=== PATIENT | male | born 1960 | race African-American/Black ===

== ENCOUNTER 2016-05-04 08:47 | Emergency (ER) | payer OTHER ==
[2016-05-04 08:50] VITALS: BP 152/69
--- NOTE | 2016-05-04 09:10 | PHYS DOC ---
Text Departure: Impression: Primary Impression: Feared condition not demonstrated Disposition: HOME, SELF-CARE (At 0936) Condition: STABLE General Chief Complaint: FOREIGN BODY Time Seen by MD: 08:50 Source: patient Problems: History of Present Illness Initial Comments 55-year-old male patient with history of diabetes mellitus states he was giving himself injections of insulin in right-side of abdominal wall and the needle was broken and stayed inside the abdominal wall. Allergies: Coded Allergies: ibuprofen (Verified Allergy, Unknown, 05/04/16) Past Medical History Medical History: diabetes, other (dialysis) Review of Systems Constitutional: no symptoms reported EENTM: no symptoms reported Respiratory: no symptoms reported Cardiovascular: no symptoms reported Gastrointestinal: see HPI Genitourinary: no symptoms reported Musculoskeletal: no symptoms reported Skin: no symptoms reported Psychiatric/Neurological: no symptoms reported Hematologic/Lymphatic: no symptoms reported Immunological/Allergic: no symptoms reported All Other Systems: Reviewed and Negative Physical Exam General Appearance: WD/WN, no apparent distress Ear, Nose, Throat: hearing grossly normal, normal ENT inspection, normal pharynx Neck: non-tender, full range of motion Respiratory: chest non-tender, lungs clear, normal breath sounds Cardiovascular: normal peripheral pulses, regular rate, rhythm, no edema, no gallop Gastrointestinal: normal bowel sounds, non tender, soft, no organomegaly, other (left side peritoneal catheter in place, no foreign body in right side of abdomen) Orders, Labs, Meds Evaluation of patient's shortness 55-year-old male patient presented with possible retained metal part of insulin syringe in abdominal wall. X ray and physical exam did not demonstrate foreign body in abdominal wall. JAIRO LINDO MD May 04, 2016 09:10
--- NOTE | 2016-05-04 09:30 | RAD ---
Abdomen, 3 views, 05/04/2016: History: Possible retained broken needle AP and lateral views were obtained. The AP views were centered over the right side of the abdomen with the lower pelvis and left flank region not being completely visualized. A BB was placed on the skin surface in the right flank region in the area of clinical concern on one of the 2 AP views. No underlying radiopaque foreign body is seen at this level to suggest a retained needle fragment. There is a cluster of coil like radiopacities projected over the right renal region, most likely representing embolization coils. There are surgical clips in the right lower quadrant and the pelvis. There is a tubing overlying the left side of the abdomen, incompletely visualized on these images, reportedly representing a peritoneal dialysis catheter. A radiopaque foreign body compatible with a portion of a safety pin is projected over the left lower quadrant. This presumably lies on the surface of the patient. Clinical correlation is suggested. There is a moderate amount of gas in large and small bowel in a nonspecific pattern. Moderate aortoiliac calcific plaquing is present. IMPRESSION: 1. No retained needle fragment is identified in the area of reported clinical concern in the right flank region. 2. Surgical clips, embolization coils and a peritoneal dialysis catheter with an associated safety pin as described above.
== END 2016-05-04 09:40 | disposition home or self-care (01) ==
LOC: ER 08:47
DX: Z71.1 Person with feared health complaint in whom no diagnosis is made (principal); E11.9 Type 2 diabetes mellitus without complications; Z99.2 Dependence on renal dialysis; Z79.4 Long term (current) use of insulin; Z88.6 Allergy status to analgesic agent
CPT/HCPCS: 74020; 99284

== ENCOUNTER 2016-11-29 16:28 | Emergency (ER) | payer OTHER ==
[2016-11-29] MEDS ORDERED: HYDROcodone/APAP 5/325MG 1 TAB TABLET ONE (17:22)
[2016-11-29] MEDS ORDERED: HYDROcodone/APAP 5/325MG 1 TAB TABLET PO ONE (17:45)
--- NOTE | 2016-11-29 17:55 | PHYS DOC ---
Past History Past Medical History: Diabetes, Renal Disease Past Surgical History: Other Alcohol Use: None Drug Use: None Adult General Chief Complaint Chief Complaint: MECHANICAL FALL HPI HPI Patient is a 56 year old M who presents after a fall just prior to arrival. Candice describes generalized pain in his ankles bilaterally with radiation to the lower leg just below the knee. He states that just prior to his fall he began feeling symptoms of low blood sugar, which is not atypical with his diabetes. He stood up from the living room and walked towards the kitchen to get a snack when he became dizzy and fell. He has been unable to bear weight. He states that he has no other associated symptoms. He has no other exacerbating or alleviating factors. Review of Systems Review of Systems Constitutional: Denies fever or chills [] Eyes: Denies change in visual acuity, redness, or eye pain [] HENT: Denies nasal congestion or sore throat [] Respiratory: Denies cough or shortness of breath [] Cardiovascular: No additional information not addressed in HPI [] GI: Denies abdominal pain, nausea, vomiting, bloody stools or diarrhea [] : Denies dysuria or hematuria [] Musculoskeletal: Negative except history of present illness Integument: Denies rash or skin lesions [] Neurologic: Denies headache, focal weakness or sensory changes [] Endocrine: Denies polyuria or polydipsia [] Family History Family History Noncontributory Current Medications Current Medications Home medications reviewed Current Medications Medications (Trade) Dose Ordered Sig/Elia Start Time Stop Time Status Last Admin Dose Admin Acetaminophen/ Hydrocodone Bitart (Lortab 5/325) 2 tab 1X ONCE 11/29/16 17:45 11/29/16 17:46 DC Morphine Sulfate (Morphine 2mg Syringe) 2 mg 1X ONCE 11/29/16 17:45 11/29/16 17:46 UNV Ondansetron HCl (Zofran) 4 mg 1X ONCE 11/29/16 17:45 11/29/16 17:46 UNV Allergies Allergies Allergies Coded Allergies Type Severity Reaction Last Updated Verified ibuprofen Allergy Unknown 05/04/16 Yes Physical Exam Physical Exam Constitutional: Well developed, well nourished, non-toxic appearance. [] Moderate distress noted due to pain. HENT: Normocephalic, atraumatic, bilateral external ears normal, oropharynx moist, no oral exudates, nose normal. [] Eyes: EOMI, conjunctiva normal, no discharge. [] Neck: Normal range of motion, no tenderness, supple, no stridor. [] Cardiovascular:Heart rate regular rhythm, no murmur [] Lungs & Thorax: Bilateral breath sounds clear to auscultation [] Abdomen: Bowel sounds normal, soft, no tenderness, no masses, no pulsatile masses. [] Skin: Warm, dry, no erythema, no rash. [] Back: No tenderness, no CVA tenderness. [] Extremities: Bilateral ankles noted to have mild swelling, moderate generalized tenderness to palpation worse over the lateral ankle bilaterally. Strength and range of motion testing limited due to pain. Neurovascularly intact bilaterally. Neurologic: Alert and oriented X 3, normal motor function, normal sensory function, no focal deficits noted. [] Psychologic: Affect normal, judgement normal, mood normal. [] Current Patient Data Vital Signs Vital Signs Date Time Temp Pulse Resp B/P (MAP) Pulse Ox O2 Delivery O2 Flow Rate FiO2 11/29/16 16:40 97.5 93 22 93 Room Air EKG EKG [] Radiology/Procedures Radiology/Procedures Ankle x-ray bilaterally Impressions: Distal right fibular oblique fracture Distal left fibular oblique fracture Course & Med Decision Making Course & Med Decision Making Pertinent Labs and Imaging studies reviewed. (See chart for details) Fabias condition is complicated by diabetes, high blood pressure and dialysis for renal failure. His dialysis days are Saturday. He did dialyze today. His next dialysis date is Saturday. Orthopedics was contacted by phone. His pain is difficult to control with oral pain medication. Transfer was recommended for pain control and further management from orthopedics. Dragon Disclaimer Dragon Disclaimer This chart was dictated in whole or in part using Voice Recognition software in a busy, high-work load, and often noisy Emergency Department environment. It may contain unintended and wholly unrecognized errors or omissions. Departure Departure: Impression: Primary Impression: Closed fracture of right distal fibula Disposition: OTHER Condition: STABLE Referrals: MARIANNE PAN DO (PCP) Problem Qualifiers Primary Impression: Closed fracture of right distal fibula Encounter type: initial encounter Fracture morphology: unspecified fracture morphology Qualified Codes: S82.831A - Other fracture of upper and lower end of right fibula, initial encounter for closed fracture CARMEN AMAYA MD Nov 29, 2016 17:55
[2016-11-29] MEDS ORDERED: MORPHINE SULFATE 2 MG/ML DISP.SYRIN. IV ONE (18:00)
[2016-11-29] MEDS ORDERED: ONDANSETRON PF 4 MG/2 ML VIAL. IV ONE (18:00)
--- NOTE | 2016-11-29 18:30 | RAD ---
History: Fall, bilateral ankle pain and swelling. Comparison: None. Findings: AP, lateral, and oblique views of the right ankle. Spiral fracture seen involving the distal fibular shaft extending to the level of the ankle mortise (Zapata B). There is no widening of the ankle mortise. Lateral ankle soft tissue swelling is seen. Plantar calcaneal and Achilles tendon insertional enthesophytes are seen. AP, lateral, and oblique views of the left ankle. Nondisplaced spiral fracture is seen involving the distal fibula extending to the ankle mortise (Zapata B). Lateral ankle soft tissue swelling is seen. There is no widening of the ankle mortise. Lateral ankle soft tissue swelling is present. Plantar calcaneal and Achilles tendon insertional enthesophytes are seen. Impression: Bilateral fibular fractures, presumably acute. Electronically signed by: Vinod Calderon MD (11/29/2016 6:26 PM) [facility]
[2016-11-29] MEDS ORDERED: MORPHINE SULFATE 4 MG/ML DISP.SYRIN. ONE (18:31)
[2016-11-29] MEDS ORDERED: MORPHINE SULFATE 4 MG/ML DISP.SYRIN. IV ONE ×3 (18:45→20:30)
[2016-11-29 19:00] LABS: BASO % 0 % (0-3); EOS # 0.1 x10^3/uL (0.0-0.7); EOS % 1 % (0-3); HEMATOCRIT 33.3 % (39.0-53.0); HEMOGLOBIN 10.5 g/dL (13.0-17.5); LYMPH # 1.3 x10^3/uL (1.0-4.8); LYMPH % 13 % (24-48); MEAN CORPUSCULAR HEMOGLOBIN 26 pg (25-35); MEAN CORPUSCULAR HGB CONC 32 g/dL (31-37); MEAN CORPUSCULAR VOLUME 82 fL (79-100); MONO % 10 % (0-9); NEUT # 7.5 x10^3uL (1.8-7.7); NEUT % 76 % (31-73); PLATELET COUNT 271 x10^3/uL (140-400); RED BLOOD COUNT 4.05 x10^6/uL (4.30-5.70); RED CELL DISTRIBUTION WIDTH 20.3 % (11.5-14.5); WHITE BLOOD COUNT 9.9 x10^3/uL (4.0-11.0)
[2016-11-29 19:03] LABS: CALCIUM 9.1 mg/dL (8.5-10.1); CREATININE 7.4 mg/dL (0.7-1.3); GFR 9.3; POTASSIUM 4.8 mmol/L (3.5-5.1)
[2016-11-29 19:56] VITALS: BP 105/56
[2016-11-29 23:03] LABS: ANISOCYTOSIS MOD; MICROCYTOSIS SLIGHT; OVALOCYTES FEW; PLT ESTIMATE ADEQUATE (ADEQUATE); STOMATOCYTES FEW; TARGET CELLS FEW; TEAR DROP CELLS FEW
== END 2016-11-29 20:45 | disposition short-term general hospital (02) ==
LOC: ER 16:28
DX: S82.831A Other fracture of upper and lower end of right fibula, initial encounter for closed fracture (principal); M25.572 Pain in left ankle and joints of left foot; E11.22 Type 2 diabetes mellitus with diabetic chronic kidney disease; N18.6 End stage renal disease; Z99.2 Dependence on renal dialysis; Z88.6 Allergy status to analgesic agent; W19.XXXA Unspecified fall, initial encounter; Y93.01 Activity, walking, marching and hiking; Y99.8 Other external cause status; Y92.000 Kitchen of unspecified non-institutional (private) residence as the place of occurrence of the external cause
CPT/HCPCS: 29515; 36415; 73610; 80048; 82947; 85025; 96374; 96375; 96376; 99285; J2270; J2405

== ENCOUNTER → 2016-12-27 | Outpatient (CLI) | payer MEDICARE, OTHER ==
[2016-11-29 19:56] VITALS: BP 105/56
--- NOTE | 2016-12-27 10:15 | RAD ---
Left lower extremity arterial duplex ultrasound. 12/27/2016 Indication: Left lower extremity pain. Foot pain. Painful great toe. Patient is a dialysis dependent patient with history of diabetes and hypertension. Discussion: Sonographic evaluation of the arteries of the left lower extremity was performed including color Doppler imaging spectral analysis. Diffuse changes of atherosclerotic vascular disease are noted. Left common femoral artery demonstrates biphasic waveforms normal velocities. Visualized profunda artery is grossly patent. Biphasic waveforms are seen throughout the left SFA without demonstrable visual stenosis or focal elevation in velocities suggestive of a high-grade stenosis. More dense focal calcification is noted in the left popliteal artery however waveforms remain triphasic and no focal elevation of velocities is appreciated. There is shift monophasic waveforms in the left posterior tibial artery. Peroneal artery and anterior tibial artery with biphasic waveforms. Impression: Diffuse atherosclerotic vascular disease without sonographic evidence of hemodynamically significant focal stenosis. Consider correlation with ankle brachial indices. If there is persistent concern for an a sonographically occult hemodynamically significant stenosis CTA may be further may be helpful for further evaluation.
== END | disposition home or self-care (01) ==
LOC: US 08:03
PROVIDERS: ATTEND Internal Medicine Nephrology
DX: I70.292 Other atherosclerosis of native arteries of extremities, left leg (principal); E11.22 Type 2 diabetes mellitus with diabetic chronic kidney disease; I12.0 Hypertensive chronic kidney disease with stage 5 chronic kidney disease or end stage renal disease; N18.6 End stage renal disease; Z99.2 Dependence on renal dialysis; Z79.4 Long term (current) use of insulin
CPT/HCPCS: 93926

== ENCOUNTER 2017-09-09 12:44 | Emergency (ER) | payer MEDICARE, OTHER ==
[~2017-09-09] VITALS: Ht 185.4 cm; Wt 124.3 kg
--- NOTE | 2017-09-09 13:07 | ED.ADGEN ---
Past History Past Medical History: Diabetes, Renal Disease Past Surgical History: Other Alcohol Use: None Drug Use: None Adult General Chief Complaint Chief Complaint Elevated blood sugar HPI HPI The patient is on peritoneal dialysis and has diabetes. Over the last 4 days, he 's noted elevated blood sugars and today his blood sugar was unreadable. He went to [facility] who measured his blood glucose at 733 and sent him the to emergency department for further evaluation. He denies any complaints. He denies any headache, weakness, numbness, lightheadedness, chest pain or shortness of breath. No fevers. No vomiting or abdominal pain. Review of Systems Review of Systems Constitutional: Denies fever or chills Eyes: Denies change in visual acuity, redness, or eye pain HENT: Denies nasal congestion or sore throat Respiratory: Denies cough or shortness of breath Cardiovascular: Denies chest pain, no palpitations GI: Denies abdominal pain, nausea, vomiting, bloody stools or diarrhea : Denies dysuria or hematuria Musculoskeletal: Denies back pain or joint pain Integument: Denies rash or skin lesions Neurologic: Denies headache, focal weakness or sensory changes Endocrine: Denies polyuria or polydipsia All other systems were reviewed and found to be within normal limits, except as documented in this note. Current Medications Current Medications Current Medications Medications (Trade) Dose Ordered Sig/Elia Start Time Stop Time Status Last Admin Dose Admin Fentanyl Citrate (Fentanyl 2ml Vial) 100 mcg STK-MED ONCE 09/09/17 15:43 09/09/17 15:44 DC Hydralazine HCl (Apresoline) 50 mg 1X ONCE 09/09/17 16:15 09/09/17 16:15 DC 09/09/17 16:09 50 MG Insulin Human Regular (HumuLIN R VIAL) 10 unit 1X ONCE 09/09/17 14:45 09/09/17 14:46 DC 09/09/17 14:37 10 UNIT Insulin Human Regular (NovoLIN R) 10 unit 1X ONCE 09/09/17 14:45 09/09/17 14:45 DC Allergies Allergies Allergies Coded Allergies Type Severity Reaction Last Updated Verified ibuprofen Allergy Unknown 09/09/17 Yes morphine Allergy Unknown VIOLENT 09/09/17 Yes Physical Exam Physical Exam Constitutional: Well developed, well nourished, no acute distress, non-toxic appearance. HENT: Normocephalic, atraumatic, bilateral external ears normal, oropharynx moist, no oral exudates, nose normal. Eyes: PERRLA, EOMI, conjunctiva normal, no discharge. Neck: Normal range of motion, no tenderness, supple, no stridor. Cardiovascular:Heart rate regular rhythm, no murmur Lungs & Thorax: Bilateral breath sounds clear to auscultation Abdomen: Bowel sounds normal, soft, no tenderness, no masses, no pulsatile masses. Skin: Warm, dry, no erythema, no rash. Back: No tenderness, no CVA tenderness. Extremities: No tenderness, no cyanosis, no clubbing, ROM intact, no edema. Neurologic: Alert and oriented X 3, normal motor function, normal sensory function, no focal deficits noted. Gait normal Psychologic: Affect normal, judgement normal, mood normal. Current Patient Data Vital Signs Vital Signs Date Time Temp Pulse Resp B/P (MAP) Pulse Ox O2 Delivery O2 Flow Rate FiO2 09/09/17 16:09 65 188/122 09/09/17 15:45 18 Room Air 09/09/17 15:37 95 09/09/17 13:00 98.4 Lab Results Laboratory Tests Test 09/09/17 13:30 09/09/17 14:02 09/09/17 15:32 White Blood Count 5.7 x10^3/uL (4.0-11.0) Red Blood Count 3.47 x10^6/uL (4.30-5.70) L Hemoglobin 9.2 g/dL (13.0-17.5) L Hematocrit 29.5 % (39.0-53.0) L Mean Corpuscular Volume 85 fL (79-100) Mean Corpuscular Hemoglobin 27 pg (25-35) Mean Corpuscular Hemoglobin Concent 31 g/dL (31-37) Red Cell Distribution Width 20.9 % (11.5-14.5) H Platelet Count 247 x10^3/uL (140-400) Neutrophils (%) (Auto) 66 % (31-73) Lymphocytes (%) (Auto) 19 % (24-48) L Monocytes (%) (Auto) 8 % (0-9) Eosinophils (%) (Auto) 5 % (0-3) H Basophils (%) (Auto) 2 % (0-3) Neutrophils # (Auto) 3.8 x10^3uL (1.8-7.7) Lymphocytes # (Auto) 1.1 x10^3/uL (1.0-4.8) Monocytes # (Auto) 0.5 x10^3/uL (0.0-1.1) Eosinophils # (Auto) 0.3 x10^3/uL (0.0-0.7) Basophils # (Auto) 0.1 x10^3/uL (0.0-0.2) Platelet Estimate Adequate (ADEQUATE) Polychromasia Slight Hypochromasia Slight Basophilic Stippling Present Anisocytosis Mod Microcytosis Slight Tear Drop Cells Occ Ovalocytes Occ Sodium Level 129 mmol/L (136-145) L Potassium Level 3.4 mmol/L (3.5-5.1) L Chloride Level 91 mmol/L (98-107) L Carbon Dioxide Level 28 mmol/L (21-32) Anion Gap 10 (6-14) Blood Urea Nitrogen 59 mg/dL (8-26) H Creatinine 12.9 mg/dL (0.7-1.3) H Estimated GFR (Cockcroft-Gault) 4.9 BUN/Creatinine Ratio 5 (6-20) L Glucose Level 741 mg/dL (70-99) *H Calcium Level 8.9 mg/dL (8.5-10.1) Total Bilirubin 0.3 mg/dL (0.2-1.0) Aspartate Amino Transferase (AST) 20 U/L (15-37) Alanine Aminotransferase (ALT) 33 U/L (16-63) Alkaline Phosphatase 181 U/L (46-116) H Troponin I Quantitative 0.017 ng/mL (0-0.055) Total Protein 6.3 g/dL (6.4-8.2) L Albumin 2.6 g/dL (3.4-5.0) L Albumin/Globulin Ratio 0.7 (1.0-1.7) L Urine Collection Type Unknown Urine Color Yellow Urine Clarity Hazy Urine pH 7.0 Urine Specific Vina 1.015 Urine Protein >100 mg/dl (NEG-TRACE) Urine Glucose (UA) 500 mg/dL (NEG) Urine Ketones (Stick) Neg mg/dL (NEG) Urine Blood Small (NEG) Urine Nitrite Neg (NEG) Urine Bilirubin Neg (NEG) Urine Urobilinogen Dipstick 0.2 mg/dL (0.2 mg/dL) Urine Leukocyte Esterase Neg (NEG) Urine RBC 6-10 /HPF (0-2) Urine WBC 1-4 /HPF (0-4) Urine Squamous Epithelial Cells Occ /LPF Urine Bacteria 0 /HPF (0-FEW) Urine Hyaline Casts Occ /HPF Glucose (Fingerstick) 500 mg/dL (70-99) *H Laboratory Tests Test 09/09/17 13:30 09/09/17 14:02 09/09/17 15:32 White Blood Count 5.7 x10^3/uL Red Blood Count 3.47 x10^6/uL Hemoglobin 9.2 g/dL Hematocrit 29.5 % Mean Corpuscular Volume 85 fL Mean Corpuscular Hemoglobin 27 pg Mean Corpuscular Hemoglobin Concent 31 g/dL Red Cell Distribution Width 20.9 % Platelet Count 247 x10^3/uL Neutrophils (%) (Auto) 66 % Lymphocytes (%) (Auto) 19 % Monocytes (%) (Auto) 8 % Eosinophils (%) (Auto) 5 % Basophils (%) (Auto) 2 % Neutrophils # (Auto) 3.8 x10^3uL Lymphocytes # (Auto) 1.1 x10^3/uL Monocytes # (Auto) 0.5 x10^3/uL Eosinophils # (Auto) 0.3 x10^3/uL Basophils # (Auto) 0.1 x10^3/uL Platelet Estimate Adequate Polychromasia Slight Hypochromasia Slight Basophilic Stippling Present Anisocytosis Mod Microcytosis Slight Tear Drop Cells Occ Ovalocytes Occ Sodium Level 129 mmol/L Potassium Level 3.4 mmol/L Chloride Level 91 mmol/L Carbon Dioxide Level 28 mmol/L Anion Gap 10 Blood Urea Nitrogen 59 mg/dL Creatinine 12.9 mg/dL Estimated GFR (Cockcroft-Gault) 4.9 BUN/Creatinine Ratio 5 Glucose Level 741 mg/dL Calcium Level 8.9 mg/dL Total Bilirubin 0.3 mg/dL Aspartate Amino Transf (AST/SGOT) 20 U/L Alanine Aminotransferase (ALT/SGPT) 33 U/L Alkaline Phosphatase 181 U/L Troponin I Quantitative 0.017 ng/mL Total Protein 6.3 g/dL Albumin 2.6 g/dL Albumin/Globulin Ratio 0.7 Urine Collection Type Unknown Urine Color Yellow Urine Clarity Hazy Urine pH 7.0 Urine Specific Vina 1.015 Urine Protein >100 mg/dl Urine Glucose (UA) 500 mg/dL Urine Ketones (Stick) Neg mg/dL Urine Blood Small Urine Nitrite Neg Urine Bilirubin Neg Urine Urobilinogen Dipstick 0.2 mg/dL Urine Leukocyte Esterase Neg Urine RBC 6-10 /HPF Urine WBC 1-4 /HPF Urine Squamous Epithelial Cells Occ /LPF Urine Bacteria 0 /HPF Urine Hyaline Casts Occ /HPF Glucose (Fingerstick) 500 mg/dL Current Medications Medications (Trade) Dose Ordered Sig/Elia Route PRN Reason Start Time Stop Time Status Last Admin Dose Admin Insulin Human Regular (NovoLIN R) 10 unit 1X ONCE IV 09/09/17 14:45 09/09/17 14:45 DC Insulin Human Regular (HumuLIN R VIAL) 10 unit 1X ONCE IV 09/09/17 14:45 09/09/17 14:46 DC 09/09/17 14:37 10 UNIT Fentanyl Citrate (Fentanyl 2ml Vial) 100 mcg 1X ONCE IV 09/09/17 16:00 09/09/17 16:01 DC 09/09/17 15:45 100 MCG Fentanyl Citrate (Fentanyl 2ml Vial) 100 mcg STK-MED ONCE .ROUTE 09/09/17 15:43 09/09/17 15:44 DC Hydralazine HCl (Apresoline) 20 mg 1X ONCE IV 09/09/17 16:15 09/09/17 16:15 DC Hydralazine HCl (Apresoline) 50 mg 1X ONCE PO 09/09/17 16:15 09/09/17 16:15 DC 09/09/17 16:09 50 MG EKG EKG 13:24 ECG Normal sinus rhythm at 96 without acute changes` Radiology/Procedures Radiology/Procedures [] Course & Med Decision Making Course & Med Decision Making Patient presents with elevated blood sugar, hypertension. He's asymptomatic DDx-hyperglycemia, hyperosmolar state, DKA, infection, acute coronary syndrome, dehydration, UTI, pneumonia Patient was stable emergency department. Labs remarkable for hyperglycemia, pseudo-hyponatremia, elevated BUN/creatinine consistent with renal failure. The patient was threatening and argumentative with staff. Security called to bedside. Patient was given Insulin 10 units IV with improvement, Repeat serum glucose 500. Patient was given hydralazine for HTN. 14:[address] Garay of who recommends transfer to [facility] for admission, noting need for peritoneal dialysis 14:[address] Ro who accepts admission to [facility] Final Impression Final Impression Clinical Impression Hyperosmolar Nonketotic state secondary with type 2 DM ESRD on peritoneal dialysis Uncontrolled Hypertension Dragon Disclaimer Dragon Disclaimer This electronic medical record was generated, in whole or in part, using a voice recognition dictation system. Departure Departure: Impression: Primary Impression: Hyperosmolar non-ketotic state in patient with type 2 diabetes mellitus Additional Impressions: ESRD on peritoneal dialysis Uncontrolled hypertension Disposition: 05 XFER OTHER Condition: STABLE ALLISON MACDONALD MD Sep 09, 2017 13:07
[2017-09-09 13:47] LABS: BASO # 0.1 x10^3/uL (0.0-0.2); BASO % 2 % (0-3); EOS # 0.3 x10^3/uL (0.0-0.7); EOS % 5 % (0-3); HEMATOCRIT 29.5 % (39.0-53.0); HEMOGLOBIN 9.2 g/dL (13.0-17.5); LYMPH # 1.1 x10^3/uL (1.0-4.8); LYMPH % 19 % (24-48); MEAN CORPUSCULAR HEMOGLOBIN 27 pg (25-35); MEAN CORPUSCULAR HGB CONC 31 g/dL (31-37); MEAN CORPUSCULAR VOLUME 85 fL (79-100); MONO # 0.5 x10^3/uL (0.0-1.1); MONO % 8 % (0-9); NEUT # 3.8 x10^3uL (1.8-7.7); NEUT % 66 % (31-73); PLATELET COUNT 247 x10^3/uL (140-400); RED BLOOD COUNT 3.47 x10^6/uL (4.30-5.70); RED CELL DISTRIBUTION WIDTH 20.9 % (11.5-14.5); WHITE BLOOD COUNT 5.7 x10^3/uL (4.0-11.0)
[2017-09-09 14:01] LABS: ALBUMIN 2.6 g/dL (3.4-5.0); ALBUMIN/GLOBULIN RATIO 0.7 (1.0-1.7); CALCIUM 8.9 mg/dL (8.5-10.1); CREATININE 12.9 mg/dL (0.7-1.3); GFR 4.9; POTASSIUM 3.4 mmol/L (3.5-5.1); TOTAL BILIRUBIN 0.3 mg/dL (0.2-1.0); TOTAL PROTEIN 6.3 g/dL (6.4-8.2)
[2017-09-09 14:16] LABS: ANISOCYTOSIS MOD; HYPOCHROMIA SLIGHT; PLT ESTIMATE ADEQUATE (ADEQUATE)
[2017-09-09 14:17] LABS: OVALOCYTES OCC; POLYCHROMASIA SLIGHT; TEAR DROP CELLS OCC
[2017-09-09 14:19] LABS: MICROCYTOSIS SLIGHT
[2017-09-09 14:30] LABS: BILIRUBIN,URINE NEG (NEG); CLARITY,URINE HAZY; COLOR,URINE YELLOW; GLUCOSE,URINE 500 mg/dL (NEG); NITRITE,URINE NEG (NEG); UROBILINOGEN,URINE 0.2 mg/dL (0.2 mg/dL)
[2017-09-09 14:31] LABS: BACTERIA,URINE 0 /HPF (0-FEW); HYALINE CASTS, URINE OCC /HPF; SQUAMOUS EPITHELIAL CELL,UR OCC /LPF
[2017-09-09] MEDS ORDERED: INSULIN REGULAR 100 UNIT/ML 3ML VIAL. IV ONE (14:45)
[2017-09-09] MEDS ORDERED: INSULIN REGULAR 100 UNIT/ML 10ML VIAL. IV ONE (14:45)
[2017-09-09 16:09] VITALS: BP 188/122
[2017-09-09] MEDS ORDERED: hydrALAZINE 10 MG TABLET PO ONE (16:15)
[2017-09-09] MEDS ORDERED: hydrALAZINE 20 MG/ML VIAL. IV ONE (16:15)
== END 2017-09-09 16:08 | disposition short-term general hospital (02) ==
LOC: ER 12:44
DX: E11.00 Type 2 diabetes mellitus with hyperosmolarity without nonketotic hyperglycemic-hyperosmolar coma (NKHHC) (principal); E11.22 Type 2 diabetes mellitus with diabetic chronic kidney disease; I12.0 Hypertensive chronic kidney disease with stage 5 chronic kidney disease or end stage renal disease; N18.6 End stage renal disease; Z99.2 Dependence on renal dialysis; Z88.6 Allergy status to analgesic agent; Z88.5 Allergy status to narcotic agent
CPT/HCPCS: 36415; 80053; 81001; 82947; 84484; 85025; 93005; 96374; 96375; 99285; J1815; J3010

== ENCOUNTER 2017-11-16 05:39 | Emergency (ER) | payer MEDICARE, OTHER ==
[~2017-11-16] VITALS: Ht 185.4 cm; Wt 122.6 kg
--- NOTE | 2017-11-16 05:51 | ED.ADGEN ---
Past History Past Medical History: Diabetes, Hypertension, Renal Failure (BRICE REDDY MD) Past Surgical History: Appendectomy, Cholecystectomy, Tonsillectomy, Other (BRICE REDDY MD) Alcohol Use: None Drug Use: None (BRICE REDDY MD) Adult General Chief Complaint Chief Complaint ".. I ve got severe abd. pain... it feels likes something is twisted in my bowel... " (BRICE REDDY MD) HPI HPI Patient is a 57 year old male who presents with above hx and complaints severe abd.. pain the last two days. Pt. has been on peritoneal hemodialysis the last 4 yrs. Pt. states check of his dialysis fluid did not present like peritonitis. Pt. has never had peritonitis with his peritoneal dialysis. Pt. had passed gas and had a stool. Pt. feels very distended and abdomen pain is generalized. Pt. denies any intake of bad food or travel. Patient denies any specific ill contacts. Dr. Davies manages his dialysis and renal failure. Pt. hx of DM, HTN. Pt. states he had his appendix, gallbladder and tonsils removed. (BRICE REDDY MD) Review of Systems Review of Systems Constitutional: Denies fever or chills [] Eyes: Denies change in visual acuity, redness, or eye pain [] HENT: Denies nasal congestion or sore throat [] Respiratory: Denies cough or shortness of breath [] Cardiovascular: No additional information not addressed in HPI [] GI: Complaints abdominal pain, nausea,. Santos vomiting, bloody stools or diarrhea [] : Denies dysuria or hematuria [] Musculoskeletal: Denies back pain or joint pain [] Integument: Denies rash or skin lesions [] Neurologic: Denies headache, focal weakness or sensory changes [] Endocrine: Denies polyuria or polydipsia [] All other systems were reviewed and found to be within normal limits, except as documented in this note. (BRICE REDDY MD) Family History Family History HTN (BRICE REDDY MD) Current Medications Current Medications Current Medications Medications (Trade) Dose Ordered Sig/Elia Start Time Stop Time Status Last Admin Dose Admin Clonidine HCl (Catapres) 0.2 mg 1X ONCE 11/16/17 06:30 11/16/17 06:30 DC Famotidine (Pepcid Vial) 20 mg 1X ONCE 11/16/17 06:00 11/16/17 06:01 DC 11/16/17 06:59 20 MG Fentanyl Citrate (Fentanyl 2ml Vial) 50 mcg 1X ONCE 11/16/17 07:45 11/16/17 07:46 DC 11/16/17 07:45 50 MCG Hydralazine HCl (Apresoline) 10 mg 1X ONCE 11/16/17 08:00 11/16/17 08:01 DC 11/16/17 07:58 10 MG Info (Do NOT chart on this entry -- for MONITORING) 1 each PRN DAILY PRN 11/16/17 06:30 11/16/17 09:45 DC Iohexol (Omnipaque 240 Mg/ml) 50 ml 1X ONCE 11/16/17 06:30 11/16/17 06:31 DC 11/16/17 07:26 50 ML Ondansetron HCl (Zofran) 4 mg 1X ONCE 11/16/17 06:00 11/16/17 06:01 DC 11/16/17 07:00 4 MG Sodium Chloride 1,000 ml @ 100 mls/hr Q10H 11/16/17 06:00 11/16/17 06:15 DC (JAIRO LINDO MD) Current Medications See Nursing for home meds (BRICE REDDY MD) Allergies Allergies Allergies Coded Allergies Type Severity Reaction Last Updated Verified ibuprofen Allergy Unknown 11/16/17 Yes morphine Allergy Unknown VIOLENT 11/16/17 Yes (JAIRO LINDO MD) Physical Exam Physical Exam Constitutional: in acute distress, non-toxic appearance. [] HENT: Normocephalic, atraumatic, bilateral external ears normal, oropharynx moist, no oral exudates, nose normal. [] Eyes: PERRLA, EOMI, conjunctiva normal, no discharge. [] Neck: Normal range of motion, no tenderness, supple, no stridor. [] Cardiovascular:Tachycardia Heart rate regular rhythm, no murmur []PMI to Lt. Lungs & Thorax: Bilateral breath sounds equal at apexes with few scattered wheezes and basilar crackles on auscultation [] Abdomen: Bowel sounds normal, soft, generalized tenderness, no masses, no pulsatile masses. [] Old surgery scars. Port on Lt for Peritoneal dialysis. Distended. Skin: Warm, dry, no erythema, no rash. [] Back: No tenderness, no CVA tenderness. [] Extremities: No tenderness, no cyanosis, no clubbing, ROM intact, ankle edema. [ ] Neurologic: Alert and oriented X 3, normal motor function, normal sensory function, no focal deficits noted. [] Psychologic: Affect agitated, judgement normal, mood normal. [] (BRICE REDDY MD) Current Patient Data Vital Signs Vital Signs Date Time Temp Pulse Resp B/P (MAP) Pulse Ox O2 Delivery O2 Flow Rate FiO2 11/16/17 09:00 118 178/108 (131) 95 Nasal Cannula 4.0 11/16/17 05:40 98.2 20 (JAIRO LINDO MD) Lab Results Laboratory Tests Test 11/16/17 06:40 11/16/17 06:56 White Blood Count 6.4 x10^3/uL (4.0-11.0) Red Blood Count 3.98 x10^6/uL (4.30-5.70) L Hemoglobin 10.1 g/dL (13.0-17.5) L Hematocrit 31.8 % (39.0-53.0) L Mean Corpuscular Volume 80 fL (79-100) Mean Corpuscular Hemoglobin 25 pg (25-35) Mean Corpuscular Hemoglobin Concent 32 g/dL (31-37) Red Cell Distribution Width 17.8 % (11.5-14.5) H Platelet Count 211 x10^3/uL (140-400) Neutrophils (%) (Auto) 66 % (31-73) Lymphocytes (%) (Auto) 19 % (24-48) L Monocytes (%) (Auto) 11 % (0-9) H Eosinophils (%) (Auto) 4 % (0-3) H Basophils (%) (Auto) 1 % (0-3) Neutrophils # (Auto) 4.2 x10^3uL (1.8-7.7) Lymphocytes # (Auto) 1.2 x10^3/uL (1.0-4.8) Monocytes # (Auto) 0.7 x10^3/uL (0.0-1.1) Eosinophils # (Auto) 0.3 x10^3/uL (0.0-0.7) Basophils # (Auto) 0.0 x10^3/uL (0.0-0.2) Prothrombin Time 9.7 SEC (9.4-11.4) Prothrombin Time INR 1.0 (0.9-1.1) PTT 31 SEC (23-33) Sodium Level 139 mmol/L (136-145) Potassium Level 3.7 mmol/L (3.5-5.1) Chloride Level 100 mmol/L (98-107) Carbon Dioxide Level 26 mmol/L (21-32) Anion Gap 13 (6-14) Blood Urea Nitrogen 64 mg/dL (8-26) H Creatinine 13.1 mg/dL (0.7-1.3) H Estimated GFR (Cockcroft-Gault) 4.8 Glucose Level 134 mg/dL (70-99) H Calcium Level 8.6 mg/dL (8.5-10.1) Total Bilirubin 0.1 mg/dL (0.2-1.0) L Direct Bilirubin 0.1 mg/dL (0.0-0.2) Aspartate Amino Transferase (AST) 15 U/L (15-37) Alanine Aminotransferase (ALT) 36 U/L (16-63) Alkaline Phosphatase 117 U/L (46-116) H Creatine Kinase 666 U/L (39-308) H Troponin I Quantitative 0.049 ng/mL (0-0.055) Total Protein 6.6 g/dL (6.4-8.2) Albumin 2.7 g/dL (3.4-5.0) L Lipase 1965 U/L (73-393) H Glucose (Fingerstick) 130 mg/dL (70-99) H (JAIRO LINDO MD) EKG EKG [] (BRICE REDDY MD) Radiology/Procedures Radiology/Procedures [] (BRICE REDDY MD) Radiology/Procedures [address] [address] IMAGING REPORT Signed PATIENT: HOMER JORDAN ACCOUNT: [id number] : 1960 LOCATION: ER AGE: 57 SEX: M EXAM STATUS: REG ER ORD. PHYSICIAN: BRICE REDDY MD REASON: abdomen pain PROCEDURE: CT ABD PEL W/ORAL CONTRST ONLY EXAM: CT ABDOMEN/PELVIS WITHOUT CONTRAST. HISTORY: Right abdominal pain. TECHNIQUE: Computed tomography of the abdomen and pelvis was performed without intravenous contrast. COMPARISON: None. FINDINGS: Lung windows through the visualized portions of the bases reveal mild cardiomegaly. There is mild basilar atelectasis. Bone windows reveal no suspicious lesions. A cyst in hepatic segment 4A measures 1 cm. The liver is at least mildly enlarged. The spleen is mildly enlarged at 13.9 cm. The pancreas, adrenal glands and gallbladder are unremarkable. A metallic density projects within the right renal lower pole calyces and measures 7 mm. This appears denser than calcium. Subcentimeter hypoattenuating foci within both kidneys are consistent with small cysts. Prominent lymph nodes throughout the retroperitoneum are indeterminate. For reference, one retrocaval node without a clear fatty hilus on image 59 measures 2.1 x 1.5 cm. There is diffuse bladder wall thickening. Changes of transurethral resection of the prostate are suspected. Mild wall thickening of the distal rectum may reflect only peristalsis but is indeterminate. Left and transverse colonic diverticulosis is mild. The appendix is surgically absent. A peritoneal dialysis catheter is coiled within the midline false pelvis. There is trace ascites. IMPRESSION: 1. No cause for acute pain is identified. 2. Prominent lymph nodes throughout the retroperitoneum are indeterminate. These may be reactive in the setting of peritoneal dialysis but this is unclear. Correlate for history of malignancy. Follow-up could be considered in 3 months if stability is not already known. 3. Mild rectal wall thickening is likely from peristalsis. Correlate with current colonoscopic and physical exam findings. 4. Diffuse bladder wall thickening indicates chronic outlet obstruction or inflammation. Correlate with urinalysis. 5. Mild cardiomegaly. 6. Mild hepatosplenomegaly. 7. A 7 mm metallic projects within the right renal lower pole and appears denser than expected for a renal calculus. Correlate for an embolization coil or other instrumentation. *One or more of the following individualized dose reduction techniques were utilized for this examination: 1. Automated exposure control. 2. Adjustment of the mA and/or kV according to patient size. 3. Use of iterative reconstruction technique. Electronically signed by: Darlyn Phillips MD (11/16/2017 8:44 AM) [facility] DICTATED AND SIGNED BY: DANIE PHILLIPS MD DATE: 11/16/17 0836 CC: BRICE REDDY MD; JAIRO LINDO MD; MARIANNE PAN DO ~ (JAIRO LINDO MD) Course & Med Decision Making Course & Med Decision Making Pertinent Labs and Imaging studies reviewed. (See chart for details). Discussed presentation, testing and tx plan with Dr. Lindo at 0610 hrs. She will make disposition. Labs and xrays, ekg, pending at shift change. [] (BRICE REDDY MD) Course & Med Decision Making Evaluation of patient in ER showed 57-year-old male patient with history of seasonal diagnoses presented with abdominal pain since yesterday. Patient had distended abdomen without tenderness. Patient did not have fever, leukocytosis, abnormal electrolytes. BUN/creatinine was elevated. Lipase was 1900. CT abdomen and pelvis did not show acute finding. Patient refused hospitalization and transferring to another hospital for treatment of acute pancreatitis and wants to leave AMA because he plan a trip to go to [place] this afternoon and stated he is going to go to the hospital directly from the airport. Patient signed AGAINST MEDICAL ADVICE. (JAIRO LINDO MD) Final Impression Final Impression 1. Abdomen pain[] 2. Hx. Peritoneal dialysis x 4 yrs 3. Hx. DM 4. HTN (BRICE REDDY MD) Dragon Disclaimer Dragon Disclaimer This electronic medical record was generated, in whole or in part, using a voice recognition dictation system. (BRICE REDDY MD) Departure: Impression: Primary Impression: Acute pancreatitis Additional Impressions: Chronic renal failure Peritoneal dialysis status Noncompliance by refusing service Disposition: AGAINST MEDICAL ADVICE (@0900) Condition: IMPROVED Patient Instructions: Acute Pancreatitis Scripts Hydrocodone Bit/Acetaminophen (NORCO 5-325 TABLET) 1 Each Tablet 1 TAB PO PRN Q6HRS PRN for PAIN, #10 TAB 0 Refills Prov: JAIRO LINDO MD 11/16/17 BRICE REDDY MD Nov 16, 2017 05:51 JAIRO LINDO MD Nov 16, 2017 09:01
[2017-11-16] MEDS ORDERED: FAMOTIDINE 20 MG/2 ML VIAL IVP ONE (06:00)
[2017-11-16] MEDS ORDERED: ONDANSETRON PF 4 MG/2 ML VIAL. IV ONE (06:00)
[2017-11-16] MEDS ORDERED: IV NORMAL SALINE 1,000ML 1,000 ML IV SCH (06:00)
--- NOTE | 2017-11-16 06:24 | EKG ---
[address] [address] Test Date: 2017-11-16 Test Time: 06:21:13 Pat Name: HOMER JORDAN Department: Room: Gender: M Direct Chill Caster: : 1960 Requested By: BRICE REDDY Order Number: [id number] Reading MD: Charlie Muñiz MD Measurements Intervals [place] Rate: 112 P: 91 DE: 168 QRS: 7 QRSD: 94 T: 43 QT: 358 QTc: 490 Interpretive Statements SINUS TACHYCARDIA NON-SPECIFIC ST/T CHANGES Electronically Signed On 11-18-2017 11:15:12 CDT by Charlie Muñiz MD
[2017-11-16] MEDS ORDERED: hydrALAZINE 10 MG TABLET PO ONE (06:30)
[2017-11-16] MEDS ORDERED: CONTRAST GIVEN MC PRN (06:30)
[2017-11-16] MEDS ORDERED: cloNIDine HCL 0.1 MG TABLET PO ONE (06:30)
[2017-11-16] MEDS ORDERED: IOHEXOL 240 MG/ML 50ML VIAL. PO ONE (06:30)
[2017-11-16 07:27] LABS: BASO % 1 % (0-3); EOS # 0.3 x10^3/uL (0.0-0.7); EOS % 4 % (0-3); HEMATOCRIT 31.8 % (39.0-53.0); HEMOGLOBIN 10.1 g/dL (13.0-17.5); LYMPH # 1.2 x10^3/uL (1.0-4.8); LYMPH % 19 % (24-48); MEAN CORPUSCULAR HEMOGLOBIN 25 pg (25-35); MEAN CORPUSCULAR HGB CONC 32 g/dL (31-37); MEAN CORPUSCULAR VOLUME 80 fL (79-100); MONO # 0.7 x10^3/uL (0.0-1.1); MONO % 11 % (0-9); NEUT # 4.2 x10^3uL (1.8-7.7); NEUT % 66 % (31-73); PLATELET COUNT 211 x10^3/uL (140-400); RED BLOOD COUNT 3.98 x10^6/uL (4.30-5.70); RED CELL DISTRIBUTION WIDTH 17.8 % (11.5-14.5); WHITE BLOOD COUNT 6.4 x10^3/uL (4.0-11.0)
[2017-11-16 07:35] LABS: ALBUMIN 2.7 g/dL (3.4-5.0); CALCIUM 8.6 mg/dL (8.5-10.1); CREATININE 13.1 mg/dL (0.7-1.3); DIRECT BILIRUBIN 0.1 mg/dL (0.0-0.2); GFR 4.8; POTASSIUM 3.7 mmol/L (3.5-5.1); TOTAL BILIRUBIN 0.1 mg/dL (0.2-1.0); TOTAL PROTEIN 6.6 g/dL (6.4-8.2)
[2017-11-16] MEDS ORDERED: hydrALAZINE 20 MG/ML VIAL. IV ONE (08:00)
--- NOTE | 2017-11-16 08:47 | RAD ---
EXAM: CT ABDOMEN/PELVIS WITHOUT CONTRAST. HISTORY: Right abdominal pain. TECHNIQUE: Computed tomography of the abdomen and pelvis was performed without intravenous contrast. COMPARISON: None. FINDINGS: Lung windows through the visualized portions of the bases reveal mild cardiomegaly. There is mild basilar atelectasis. Bone windows reveal no suspicious lesions. A cyst in hepatic segment 4A measures 1 cm. The liver is at least mildly enlarged. The spleen is mildly enlarged at 13.9 cm. The pancreas, adrenal glands and gallbladder are unremarkable. A metallic density projects within the right renal lower pole calyces and measures 7 mm. This appears denser than calcium. Subcentimeter hypoattenuating foci within both kidneys are consistent with small cysts. Prominent lymph nodes throughout the retroperitoneum are indeterminate. For reference, one retrocaval node without a clear fatty hilus on image 59 measures 2.1 x 1.5 cm. There is diffuse bladder wall thickening. Changes of transurethral resection of the prostate are suspected. Mild wall thickening of the distal rectum may reflect only peristalsis but is indeterminate. Left and transverse colonic diverticulosis is mild. The appendix is surgically absent. A peritoneal dialysis catheter is coiled within the midline false pelvis. There is trace ascites. IMPRESSION: 1. No cause for acute pain is identified. 2. Prominent lymph nodes throughout the retroperitoneum are indeterminate. These may be reactive in the setting of peritoneal dialysis but this is unclear. Correlate for history of malignancy. Follow-up could be considered in 3 months if stability is not already known. 3. Mild rectal wall thickening is likely from peristalsis. Correlate with current colonoscopic and physical exam findings. 4. Diffuse bladder wall thickening indicates chronic outlet obstruction or inflammation. Correlate with urinalysis. 5. Mild cardiomegaly. 6. Mild hepatosplenomegaly. 7. A 7 mm metallic projects within the right renal lower pole and appears denser than expected for a renal calculus. Correlate for an embolization coil or other instrumentation. *One or more of the following individualized dose reduction techniques were utilized for this examination: 1. Automated exposure control. 2. Adjustment of the mA and/or kV according to patient size. 3. Use of iterative reconstruction technique. Electronically signed by: Darlyn Phillips MD (11/16/2017 8:44 AM) [facility]
[2017-11-16 09:00] VITALS: BP 178/108
[2017-11-16] MEDS ORDERED: HYDR-971 PO (09:01)
== END 2017-11-16 09:00 | disposition left against medical advice (07) ==
LOC: ER 05:39
DX: R10.84 Generalized abdominal pain (principal); R14.0 Abdominal distension (gaseous); I51.7 Cardiomegaly; R16.2 Hepatomegaly with splenomegaly, not elsewhere classified; N20.0 Calculus of kidney; I12.0 Hypertensive chronic kidney disease with stage 5 chronic kidney disease or end stage renal disease; E11.22 Type 2 diabetes mellitus with diabetic chronic kidney disease; N18.6 End stage renal disease; Z99.2 Dependence on renal dialysis; Z91.19 Patient's noncompliance with other medical treatment and regimen; Z90.49 Acquired absence of other specified parts of digestive tract; Z90.89 Acquired absence of other organs; Z88.6 Allergy status to analgesic agent; Z88.5 Allergy status to narcotic agent
CPT/HCPCS: 36415; 74176; 80048; 80076; 82550; 82947; 83690; 84484; 85025; 85610; 85730; 87040; 87070; 93005; 96374; 96375; 96376; 99285; J0360; J2405; J3010; Q9966; S0028

== ENCOUNTER 2018-01-08 14:41 | Emergency (ER) | payer MEDICARE, OTHER ==
[~2018-01-08 14:41] MED LIST: HYDR-3165 PO
--- NOTE | 2018-01-08 15:26 | PHYS DOC ---
Past History Past Medical History: Diabetes, Gallstones, High Cholesterol, Hypertension, Renal Failure Past Surgical History: Appendectomy, Cholecystectomy, Tonsillectomy, Other Alcohol Use: Sober Drug Use: None Adult General Chief Complaint Chief Complaint: FLANK PAIN HPI HPI 57-year-old male presents with abdominal distention. The patient has kidney. Is on peritoneal dialysis daily. He states that today he has had significant increase in his abdominal distention. The last couple weeks he has had intermittent increased distention which sometimes improves with flatulence, sometimes worsens with eating. Today however, his distention is worse than it has been. He did his dialysis and reports "I am dry, this isn't fluid". Patient denies fever or chills. He had his fluid checked one month ago and it was reported to not be infected. Patient was diagnosed with acute pancreatitis at the same time. The abdomen is firm to touch and diffusely painful with palpation. Review of Systems Review of Systems Constitutional: Denies fever or chills [] Eyes: Denies change in visual acuity, redness, or eye pain [] HENT: Denies nasal congestion or sore throat [] Respiratory: Denies cough or shortness of breath [] Cardiovascular: No additional information not addressed in HPI [] GI: Abdominal pain and distention[] : Denies dysuria or hematuria [] Musculoskeletal: Denies back pain or joint pain [] Integument: Denies rash or skin lesions [] Neurologic: Denies headache, focal weakness or sensory changes [] Endocrine: Denies polyuria or polydipsia [] All other systems were reviewed and found to be within normal limits, except as documented in this note. Allergies Allergies Allergies Coded Allergies Type Severity Reaction Last Updated Verified ibuprofen Allergy Unknown 11/16/17 Yes morphine Allergy Unknown VIOLENT 11/16/17 Yes Physical Exam Physical Exam Constitutional: Well developed, well nourished, no acute distress, non-toxic appearance. [] HENT: Normocephalic, atraumatic, bilateral external ears normal, oropharynx moist, no oral exudates, nose normal. [] Eyes: PERRLA, EOMI, conjunctiva normal, no discharge. [] Neck: Normal range of motion, no tenderness, supple, no stridor. [] Cardiovascular:Heart rate regular rhythm, no murmur [] Lungs & Thorax: Bilateral breath sounds clear to auscultation [] Abdomen: Significant abdominal distention with tympany. Diffuse tenderness to palpation[] Skin: Warm, dry, no erythema, no rash. [] Back: No tenderness, no CVA tenderness. [] Extremities: No tenderness, no cyanosis, no clubbing, ROM intact, no edema. [] Neurologic: Alert and oriented X 3, normal motor function, normal sensory function, no focal deficits noted. [] Psychologic: Affect normal, judgement normal, mood annoyed, frustrated. [] EKG EKG [] Radiology/Procedures Radiology/Procedures [] Impressions: PQRS Compliance Statement: One or more of the following individualized dose reduction techniques were utilized for this examination: 1. Automated exposure control 2. Adjustment of the mA and/or kV according to patient size 3. Use of iterative reconstruction technique CT ABDOMEN PELVIS WO CONTRAST Clinical Indication: abdominal distension x weeks and nausea, peritoneal dialysis, diabetes Comparison: CT abdomen and pelvis without IV contrast, November 16, 2017. Technique: Helical CT imaging of the abdomen and pelvis is performed without IV or oral contrast. Findings: Evaluation of solid organs and bowel is limited without oral and IV contrast, decreasing sensitivity for detection of pathology. Moderate atelectasis or scarring in the bilateral lung bases. Finding is similar to prior study. There is cardiomegaly, unchanged. There is trace pericardial fluid. Redemonstrated hepatomegaly and small cyst in segment 8. Gallbladder, spleen, and adrenal glands are normal. Fullness of the pancreas head is stable. The pancreas is homogeneous. No peripancreatic inflammation. There is no hydronephrosis. There is right perinephric stranding and metallic density in the lower pole, unchanged. Atherosclerotic abdominal aorta, no aneurysm. Stomach unremarkable. There is respiratory motion artifact in the mid to lower abdomen that degrades image quality. No dilated small bowel. Moderate colon diverticulosis. No colon wall thickening. Appendix surgically absent. Redemonstrated peritoneal dialysis catheter. Mild retroperitoneal adenopathy is unchanged. Minimal fluid along the paracolic gutters probably relates to peritoneal dialysis. Urinary bladder wall thickening is unchanged. Prostatic urethra prominence probably related to TURP. The sacroiliac joints are mostly fused. Minimal anasarca. IMPRESSION: 1. Mild retroperitoneal adenopathy is stable. Suggest attention on subsequent imaging. 2. Moderate colon diverticulosis without diverticulitis. 3. Minimal fluid along the paracolic gutters is unchanged and probably related to peritoneal dialysis. 4. Urinary bladder wall thickening is unchanged suggestive of chronic bladder outlet obstruction or nonspecific cystitis. 5. Moderate atelectasis or scarring in the bilateral lung bases. 6. Cardiomegaly. Electronically signed by: Kristopher Shankar MD (01/08/2018 4:31 PM) [id number] DICTATED AND SIGNED BY: KRISTOPHER SHANKAR MD DATE: 01/08/18 1619 CC: MAMADOU GRIFFIN DO; MARIANNE PAN DO Course & Med Decision Making Course & Med Decision Making Pertinent Labs and Imaging studies reviewed. (See chart for details) Patient's labs are significant for elevated creatinine as expected. He also has a lipase of over 1000. I have discussed this finding with the patient and recommended admission. His CT scan was negative for acute findings. The patient has refused to be admitted. I explained to him the pancreatitis could be life- threatening. He states verbal understanding and still refuses. He will sign an AMA form. I did at least get him to commit to returning if his symptoms worsen or if he develops fever. [] Dragon Disclaimer Dragon Disclaimer This electronic medical record was generated, in whole or in part, using a voice recognition dictation system. Departure Departure: Referrals: MARIANNE PNA DO (PCP) MAMADOU GRIFFIN DO Jan 08, 2018 15:26
[2018-01-08 15:42] LABS: BASO # 0.1 x10^3/uL (0.0-0.2); BASO % 1 % (0-3); EOS # 0.3 x10^3/uL (0.0-0.7); EOS % 4 % (0-3); HEMATOCRIT 31.2 % (39.0-53.0); HEMOGLOBIN 9.8 g/dL (13.0-17.5); LYMPH # 1.2 x10^3/uL (1.0-4.8); LYMPH % 14 % (24-48); MEAN CORPUSCULAR HEMOGLOBIN 25 pg (25-35); MEAN CORPUSCULAR HGB CONC 31 g/dL (31-37); MEAN CORPUSCULAR VOLUME 81 fL (79-100); MONO # 0.8 x10^3/uL (0.0-1.1); MONO % 9 % (0-9); NEUT # 6.4 x10^3uL (1.8-7.7); NEUT % 73 % (31-73); PLATELET COUNT 343 x10^3/uL (140-400); RED BLOOD COUNT 3.86 x10^6/uL (4.30-5.70); RED CELL DISTRIBUTION WIDTH 20.8 % (11.5-14.5); WHITE BLOOD COUNT 8.8 x10^3/uL (4.0-11.0)
[2018-01-08] MEDS ORDERED: cloNIDine HCL 0.1 MG TABLET PO ONE (15:45)
[2018-01-08 15:58] LABS: ALBUMIN 2.9 g/dL (3.4-5.0); ALBUMIN/GLOBULIN RATIO 0.8 (1.0-1.7); CALCIUM 7.7 mg/dL (8.5-10.1); CREATININE 13.4 mg/dL (0.7-1.3); GFR 4.6; TOTAL BILIRUBIN 0.3 mg/dL (0.2-1.0); TOTAL PROTEIN 6.6 g/dL (6.4-8.2)
[2018-01-08 15:59] LABS: POTASSIUM 4.5 mmol/L (3.5-5.1)
--- NOTE | 2018-01-08 16:35 | RAD ---
PQRS Compliance Statement: One or more of the following individualized dose reduction techniques were utilized for this examination: 1. Automated exposure control 2. Adjustment of the mA and/or kV according to patient size 3. Use of iterative reconstruction technique CT ABDOMEN PELVIS WO CONTRAST Clinical Indication: abdominal distension x weeks and nausea, peritoneal dialysis, diabetes Comparison: CT abdomen and pelvis without IV contrast, November 16, 2017. Technique: Helical CT imaging of the abdomen and pelvis is performed without IV or oral contrast. Findings: Evaluation of solid organs and bowel is limited without oral and IV contrast, decreasing sensitivity for detection of pathology. Moderate atelectasis or scarring in the bilateral lung bases. Finding is similar to prior study. There is cardiomegaly, unchanged. There is trace pericardial fluid. Redemonstrated hepatomegaly and small cyst in segment 8. Gallbladder, spleen, and adrenal glands are normal. Fullness of the pancreas head is stable. The pancreas is homogeneous. No peripancreatic inflammation. There is no hydronephrosis. There is right perinephric stranding and metallic density in the lower pole, unchanged. Atherosclerotic abdominal aorta, no aneurysm. Stomach unremarkable. There is respiratory motion artifact in the mid to lower abdomen that degrades image quality. No dilated small bowel. Moderate colon diverticulosis. No colon wall thickening. Appendix surgically absent. Redemonstrated peritoneal dialysis catheter. Mild retroperitoneal adenopathy is unchanged. Minimal fluid along the paracolic gutters probably relates to peritoneal dialysis. Urinary bladder wall thickening is unchanged. Prostatic urethra prominence probably related to TURP. The sacroiliac joints are mostly fused. Minimal anasarca. IMPRESSION: 1. Mild retroperitoneal adenopathy is stable. Suggest attention on subsequent imaging. 2. Moderate colon diverticulosis without diverticulitis. 3. Minimal fluid along the paracolic gutters is unchanged and probably related to peritoneal dialysis. 4. Urinary bladder wall thickening is unchanged suggestive of chronic bladder outlet obstruction or nonspecific cystitis. 5. Moderate atelectasis or scarring in the bilateral lung bases. 6. Cardiomegaly. Electronically signed by: Kristopher Mckeon MD (01/08/2018 4:31 PM) [id number]
[2018-01-08 16:51] LABS: PLT ESTIMATE ADEQUATE (ADEQUATE)
[2018-01-08 17:12] LABS: TARGET CELLS FEW
[2018-01-08 17:14] LABS: BURR CELLS FEW; HYPOCHROMIA MOD
[2018-01-08 17:48] VITALS: BP 178/96
[2018-01-08 18:02] LABS: ANISOCYTOSIS SLIGHT
[2018-01-08 18:03] LABS: MICROCYTOSIS PRESENT; TEAR DROP CELLS PRESENT
[2018-01-08 18:04] LABS: SCHISTOCYTES OCC
== END 2018-01-08 17:48 | disposition left against medical advice (07) ==
LOC: ER 14:41
DX: K57.30 Diverticulosis of large intestine without perforation or abscess without bleeding (principal); J98.11 Atelectasis; I51.7 Cardiomegaly; R79.89 Other specified abnormal findings of blood chemistry; K85.90 Acute pancreatitis without necrosis or infection, unspecified; E11.9 Type 2 diabetes mellitus without complications; I10 Essential (primary) hypertension; E78.00 Pure hypercholesterolemia, unspecified; N19 Unspecified kidney failure; Z90.89 Acquired absence of other organs; Z90.49 Acquired absence of other specified parts of digestive tract; Z88.5 Allergy status to narcotic agent; Z88.6 Allergy status to analgesic agent
CPT/HCPCS: 36415; 74176; 80053; 83690; 85025; 99284

== ENCOUNTER 2019-09-27 20:16 | Emergency (ER) | payer MEDICARE, OTHER ==
[~2019-09-27] VITALS: Ht 185.4 cm; Wt 125.9 kg
--- NOTE | 2019-09-27 20:21 | PHYS DOC ---
Past History Past Medical History: Diabetes, Hypertension, Renal Disease Past Surgical History: Tonsillectomy Past Surgical History AV shunt left arm Alcohol Use: None Drug Use: None General Adult EDM: Chief Complaint: altered mental status, dialysis patient HPI: HPI: Patient is a 59 year old male who presents for evaluation of altered mental status. Patient had normal blood pressure initially and then dropped to 60 over palp with the paramedics. Patient is a dialysis patient and receives dialysis on Saturday, and Saturdays. Patient is minimally verbal on arrival and is obviously confused. Patient has a dialysis shunt in his left arm that was bleeding prior to arrival as well but a pressure dressing is now in place. Patient can follow simple commands only at this time. Patient skin is warm to touch. Blood pressure above 100 systolic on arrival but he was tachycardic on arrival. Patient had poor hygiene and soiled clothes. Furthermore there is concerned about self injury as patient had a gun in his bed when the paramedics found him. Fever 103 in triage Review of Systems: Review of Systems: Patient minimally verbal on arrival. All history taken from patient's family via phone call Heart Score: Risk Factors: Risk Factors: DM, Current or recent (<one month) smoker, HTN, HLP, family history of CAD, obesity. Risk Scores: Score 0 - 3: 2.5% MACE over next 6 weeks - Discharge Home Score 4 - 6: 20.3% MACE over next 6 weeks - Admit for Clinical Observation Score 7 - 10: 72.7% MACE over next 6 weeks - Early Invasive Strategies Allergies: Allergies: Allergies Coded Allergies Type Severity Reaction Last Updated Verified ibuprofen Allergy Unknown 11/16/17 Yes morphine Allergy Unknown VIOLENT 11/16/17 Yes Physical Exam: PE: Constitutional: Well developed, well nourished, severe distress, toxic appearance. [] HENT: Normocephalic, atraumatic, bilateral external ears normal, oropharynx moist, no oral exudates, nose normal. [] Eyes: PERRL, EOMI, conjunctiva normal, no discharge. [] Neck: Normal range of motion, no tenderness, supple, no stridor. [] Cardiovascular:Heart tachy rate regular rhythm, no murmur [] Lungs & Thorax: Bilateral breath sounds diminished bilaterally, tachypnea [] Abdomen: Bowel sounds diminished, somewhat distended, no pulsatile masses. [] Skin: Warm to touch, dry, no erythema, no rash. [] Back: No tenderness. [] Extremities: No tenderness, no cyanosis, ROM intact, bilateral lower leg edema present, dialysis shunt in place left arm, pulses present [] Neurologic: Alert and oriented x0, normal motor function, no focal deficits noted. [] Psychologic: Affect abnormal, mood abnormal. [] Current Patient Data: Labs: ABG pH 7.36, PCO2 37, PO2 108, bicarb 24, 98% on partial nonrebreather done at 2034 Vital Signs: Laboratory Tests Test 09/27/19 20:25 09/27/19 21:23 Blood Gas pH 7.36 Blood Gas PCO2 38 mmHg Blood Gas PO2 108 mmHg Blood Gas HCO3 21 mmol/L Arterial Bld O2 Saturation (Calc) 98 % FiO2 100 % White Blood Count 14.0 x10^3/uL Red Blood Count 4.40 x10^6/uL Hemoglobin 11.5 g/dL Hematocrit 37.4 % Mean Corpuscular Volume 85 fL Mean Corpuscular Hemoglobin 26 pg Mean Corpuscular Hemoglobin Concent 31 g/dL Red Cell Distribution Width 17.0 % Platelet Count 135 x10^3/uL Neutrophils (%) (Auto) 88 % Lymphocytes (%) (Auto) 6 % Monocytes (%) (Auto) 5 % Eosinophils (%) (Auto) 0 % Basophils (%) (Auto) 1 % Neutrophils # (Auto) 12.3 x10^3uL Lymphocytes # (Auto) 0.9 x10^3/uL Monocytes # (Auto) 0.7 x10^3/uL Eosinophils # (Auto) 0.0 x10^3/uL Basophils # (Auto) 0.1 x10^3/uL Sodium Level 141 mmol/L Potassium Level 4.8 mmol/L Chloride Level 101 mmol/L Carbon Dioxide Level 24 mmol/L Anion Gap 16 Blood Urea Nitrogen 58 mg/dL Creatinine 11.1 mg/dL Estimated GFR (Cockcroft-Gault) 5.7 BUN/Creatinine Ratio 5 Glucose Level 285 mg/dL Lactic Acid Level 2.0 mmol/L Calcium Level 8.5 mg/dL Total Bilirubin 0.3 mg/dL Aspartate Amino Transf (AST/SGOT) 28 U/L Alanine Aminotransferase (ALT/SGPT) 39 U/L Alkaline Phosphatase 214 U/L Troponin I Quantitative 0.295 ng/mL Total Protein 7.6 g/dL Albumin 3.5 g/dL Albumin/Globulin Ratio 0.9 Salicylates Level 3.6 mg/dL Salicylate Last Dose Date Unknown Salicylate Last Dose Time Unknown Acetaminophen Level < 2.0 mcg/mL Acetaminophen Last Dose Date Unknown Acetaminophen Last Dose Time Unknown Current Medications Medications (Trade) Dose Ordered Sig/Elia Route PRN Reason Start Time Stop Time Status Last Admin Dose Admin Sodium Chloride 1,000 ml @ 1,000 mls/hr 1X ONCE IV 09/27/19 20:30 09/27/19 21:29 DC 09/27/19 21:56 Piperacillin Sod/ Tazobactam Sod 3.375 gm/Sodium Chloride 50 ml @ 100 mls/hr 1X ONCE IV 09/27/19 20:30 09/27/19 20:59 DC 09/27/19 21:57 Sodium Chloride 50 ml @ As Directed STK-MED ONCE .ROUTE 09/27/19 21:53 09/27/19 21:54 DC Piperacillin Sod/ Tazobactam Sod (Zosyn) 3.375 gm STK-MED ONCE IV 09/27/19 21:54 09/27/19 21:54 DC Vancomycin HCl 1 gm/Sodium Chloride 250 ml @ 250 mls/hr 1X ONCE IV 09/27/19 22:15 09/27/19 23:14 UNV Vancomycin HCl 1 gm/Sodium Chloride 250 ml @ 250 mls/hr 1X ONCE IV 09/27/19 23:00 09/27/19 23:59 09/27/19 22:38 Sodium Chloride 250 ml @ As Directed STK-MED ONCE .ROUTE 09/27/19 22:35 09/27/19 22:35 DC Vancomycin HCl (Vancomycin) 1 gm STK-MED ONCE .ROUTE 09/27/19 22:35 09/27/19 22:35 DC EKG: EKG: EKG read at 2044 Sinus tach rate 112, leftward axis, not STEMI [] Radiology/Procedures: Radiology/Procedures: [address] [address] IMAGING REPORT Signed PATIENT: HOMER JORDAN LACCOUNT: [id number] : 1960 LOCATION: ER AGE: 59 SEX: M EXAM STATUS: REG ER ORD. PHYSICIAN: FELY CAMARGO DO REASON: short of air PROCEDURE: CHEST AP ONLY AP portable chest radiograph 09/27/2019 Clinical History: Shortness of breath. An AP erect portable digital radiograph of the chest was obtained. Comparison study is dated 11/30/2016. Todays radiograph is underpenetrated. The right internal jugular large bore central venous catheter is been removed. The cardiac silhouette is mildly enlarged. Atherosclerotic calcification thoracic aorta is seen. Prominence of the pulmonary vasculature is seen suggesting mild CHF. No pneumothorax or pleural effusion is noted. Degenerative changes are seen involving the thoracic spine. Impression: Prominence of the pulmonary vasculature is seen suggesting mild CHF. Electronically signed by: Eris Lugo MD (09/27/2019 8:45 PM) [id number] DICTATED AND SIGNED BY: ERIS LUGO MD DATE: 09/27/192044 CC: MARIANEN PAN DO; FELY CAMARGO DO ~ [] Impressions: [place] [address] IMAGING REPORT Signed PATIENT: HOMER JORDAN LACCOUNT: [id number] : 1960 LOCATION: ER AGE: 59 SEX: M EXAM STATUS: REG ER ORD. PHYSICIAN: FELY CAMARGO DO REASON: confusion, altered mental status, fever, lethargic PROCEDURE: CT HEAD AND CERVICAL SPINE WO CT HEAD AND CERVICAL SPINE WO Date: 09/27/2019 8:30 PM Clinical Indication: Reason: confusion, altered mental status, fever, lethargic / Spl. Instructions: / History: Comparison: None. Technique: 5 mm axial tomographic images were obtained of the head without contrast. These were viewed on brain and bone windows. Noncontrast CT of the cervical spine was performed. Sagittal and coronal reformats were performed and evaluated. One or more of the following dose reduction techniques were utilized: Automated exposure control (AEC), Adjustment of mA and/or kV according to patient size, Use of iterative reconstruction technique such as ASiR, CT scan done according to ALARA and image gently/image wisely HEAD FINDINGS: Mild nonspecific periventricular hypoattenuation, most commonly seen with chronic small vessel ischemic disease. No intra- or extra-axial mass or fluid collection. No acute hemorrhage. The ventricles are normal in size, shape, and morphology. The wan-white matter junction is normal. The basilar cisterns are patent. The visualized paranasal sinuses are normal. The visualized portions of the orbits and globes are normal. The mastoid air cells are clear. No aggressive osseous lesion or fracture. CERVICAL SPINE FINDINGS: The cervical spine is normally aligned. No acute fracture. No aggressive lytic or blastic osseous lesions. Severe multilevel degenerative disc space height loss. Multilevel mild and moderate spinal canal stenosis secondary to disc protrusions and marginal osteophytes. Multilevel mild and moderate neuroforaminal narrowing secondary to uncovertebral arthrosis. Multilevel mild and moderate facet arthrosis. The thyroid gland is normal. No cervical lymphadenopathy. Bilateral carotid atherosclerosis. The visualized aerodigestive tract is normal. The visualized portions of the lungs are clear. IMPRESSION: 1. No acute intracranial process. 2. No acute cervical spine fracture. Electronically signed by: John Ko MD (09/27/2019 9:57 PM) [facility] DICTATED AND SIGNED BY: JOHN KO MD DATE: 09/27/192156 CC: MARIANNE PAN DO; FELY CAMARGO DO ~ Course & Med Decision Making: Course & Med Decision Making Pertinent Labs and Imaging studies reviewed. (See chart for details) [] Dragon Disclaimer: Shivani Disclaimer: This electronic medical record was generated, in whole or in part, using a voice recognition dictation system. [address] TLC femoral lines bilaterally failed. However EJ access was obtained right side neck. Patient remains confused at this time. 2213 stable. Patient maintain a blood pressure 130 systolic at this time. Fabi ent given IV fluid bolus. Initial dose of Zosyn given and will add vancomycin IV 1 g as well. Case was discussed with Dr. Garay and he agreed except the patient for an IC admission transfer to [facility]. Considerations included overdose but his aspirin Tylenol levels were acceptable. 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 Consideration included stroke but the CT scan head and neck was unremarkable. 2244 Stable, paramedics ready to transport patient. SBP 130 at this time. NC 3L at this time Departure Departure: Impression: Primary Impression: Altered mental status Additional Impressions: Sepsis Dialysis patient Elevated troponin I level Person under investigation for COVID-19 Disposition: 05 TRANSFER OTHER ([facility] ICU) Admitting Physician: Christine Garay Condition: STABLE Referrals: MARIANNE PAN DO (PCP) Justification of Admission: Justification of Admission: Justification of Admission Dx: Yes Acute Renal Failure: Serum Cr > 4mg/dL Chronic Renal Failure: Severe Infection Sepsis: Altered Mental Status Altered Mental Status: Altered Mental Status Critical Care Time Critical care time was 30 minutes exclusive of procedures. COVID-19 Assessment COVID-19 Patient Risks: Age 65 or older: No Sign of co-morbidity: Yes Exp to person + for COVID: No Exp to PUI: No Travel from affected area: No Lower respiratory symptoms: Yes Fever: Yes Other: No PPE Use: Full PPE with N95 mask or PAPR: Yes FELY CAMARGO DO Sep 27, 2019 20:21
[2019-09-27] MEDS ORDERED: IV NORMAL SALINE 1,000ML 1,000 ML IV ONE (20:30)
[2019-09-27] MEDS ORDERED: PIPERACILLIN/TAZOBACTAM 3.375 GM in IV NORMAL SALINE 50ML 50 ML IV ONE (20:30)
--- NOTE | 2019-09-27 20:46 | EKG ---
[address] [address] Test Date: 2019-09-27 Test Time: 20:41:09 Pat Name: HOMER JORDAN Department: Room: Gender: M Clinical Provider Trainer: : 1960 Requested By: FELY CAMARGO Order Number: [id number] Reading MD: Measurements Intervals [place] Rate: 112 P: 45 [place]: 162 QRS: 14 QRSD: 90 T: 62 QT: 336 QTc: 460 Interpretive Statements SINUS TACHYCARDIA ATRIAL PREMATURE COMPLEX(ES) LEFT ATRIAL ABNORMALITY LOW LIMB LEAD VOLTAGE QRS(T) CONTOUR ABNORMALITY CONSISTENT WITH INFERIOR INFARCT PROBABLY OLD ABNORMAL ECG RI6.02 Compared to ECG 11/16/2017 06:21:13 Atrial abnormality now present Myocardial infarct finding now present
[2019-09-27 20:47] LABS: BGAS PH 7.36 (7.35-7.46)
--- NOTE | 2019-09-27 20:48 | RAD ---
AP portable chest radiograph 09/27/2019 Clinical History: Shortness of breath. An AP erect portable digital radiograph of the chest was obtained. Comparison study is dated 11/30/2016. Todays radiograph is underpenetrated. The right internal jugular large bore central venous catheter is been removed. The cardiac silhouette is mildly enlarged. Atherosclerotic calcification thoracic aorta is seen. Prominence of the pulmonary vasculature is seen suggesting mild CHF. No pneumothorax or pleural effusion is noted. Degenerative changes are seen involving the thoracic spine. Impression: Prominence of the pulmonary vasculature is seen suggesting mild CHF. Electronically signed by: Eris Lugo MD (09/27/2019 8:45 PM) [id number]
[2019-09-27 21:44] LABS: BASO # 0.1 x10^3/uL (0.0-0.2); BASO % 1 % (0-3); EOS % 0 % (0-3); HEMATOCRIT 37.4 % (39.0-53.0); HEMOGLOBIN 11.5 g/dL (13.0-17.5); LYMPH # 0.9 x10^3/uL (1.0-4.8); LYMPH % 6 % (24-48); MEAN CORPUSCULAR HEMOGLOBIN 26 pg (25-35); MEAN CORPUSCULAR HGB CONC 31 g/dL (31-37); MEAN CORPUSCULAR VOLUME 85 fL (79-100); MONO # 0.7 x10^3/uL (0.0-1.1); MONO % 5 % (0-9); NEUT # 12.3 x10^3uL (1.8-7.7); NEUT % 88 % (31-73); PLATELET COUNT 135 x10^3/uL (140-400)
[2019-09-27 21:50] LABS: CALCIUM 8.5 mg/dL (8.5-10.1); CREATININE 11.1 mg/dL (0.7-1.3); GFR 5.7; POTASSIUM 4.8 mmol/L (3.5-5.1)
[2019-09-27 21:53] LABS: ACETAMIN < 2.0 mcg/mL (10-30); SALIC 3.6 mg/dL (2.8-20.0)
[2019-09-27] MEDS ORDERED: IV NORMAL SALINE 50ML 50 ML ONE (21:53)
[2019-09-27] MEDS ORDERED: PIPERACILLIN/TAZOBACTAM 3.375 GM VIAL IV ONE (21:54)
[2019-09-27 21:55] LABS: ALBUMIN 3.5 g/dL (3.4-5.0); ALBUMIN/GLOBULIN RATIO 0.9 (1.0-1.7); TOTAL BILIRUBIN 0.3 mg/dL (0.2-1.0); TOTAL PROTEIN 7.6 g/dL (6.4-8.2)
--- NOTE | 2019-09-27 22:00 | RAD ---
CT HEAD AND CERVICAL SPINE WO Date: 09/27/2019 8:30 PM Clinical Indication: Reason: confusion, altered mental status, fever, lethargic / Spl. Instructions: / History: Comparison: None. Technique: 5 mm axial tomographic images were obtained of the head without contrast. These were viewed on brain and bone windows. Noncontrast CT of the cervical spine was performed. Sagittal and coronal reformats were performed and evaluated. One or more of the following dose reduction techniques were utilized: Automated exposure control (AEC), Adjustment of mA and/or kV according to patient size, Use of iterative reconstruction technique such as ASiR, CT scan done according to ALARA and image gently/image wisely HEAD FINDINGS: Mild nonspecific periventricular hypoattenuation, most commonly seen with chronic small vessel ischemic disease. No intra- or extra-axial mass or fluid collection. No acute hemorrhage. The ventricles are normal in size, shape, and morphology. The wan-white matter junction is normal. The basilar cisterns are patent. The visualized paranasal sinuses are normal. The visualized portions of the orbits and globes are normal. The mastoid air cells are clear. No aggressive osseous lesion or fracture. CERVICAL SPINE FINDINGS: The cervical spine is normally aligned. No acute fracture. No aggressive lytic or blastic osseous lesions. Severe multilevel degenerative disc space height loss. Multilevel mild and moderate spinal canal stenosis secondary to disc protrusions and marginal osteophytes. Multilevel mild and moderate neuroforaminal narrowing secondary to uncovertebral arthrosis. Multilevel mild and moderate facet arthrosis. The thyroid gland is normal. No cervical lymphadenopathy. Bilateral carotid atherosclerosis. The visualized aerodigestive tract is normal. The visualized portions of the lungs are clear. IMPRESSION: 1. No acute intracranial process. 2. No acute cervical spine fracture. Electronically signed by: Uziel Nichols MD (09/27/2019 9:57 PM) [facility]
[2019-09-27] MEDS ORDERED: VANCOMYCIN 1 GM in IV NORMAL SALINE 250ML 250 ML IV ONE ×2 (22:15→23:00)
[2019-09-27] MEDS ORDERED: IV NORMAL SALINE 250ML 250 ML ONE ×2 (22:35→23:49)
[2019-09-27] MEDS ORDERED: VANCOMYCIN 1 GM VIAL. ONE ×2 (22:35→23:49)
[2019-09-28] VITALS: BP 142/61
== END 2019-09-28 00:15 | disposition short-term general hospital (02) ==
LOC: ER 20:16
DX: A41.9 Sepsis, unspecified organism (principal); R41.82 Altered mental status, unspecified; R79.89 Other specified abnormal findings of blood chemistry; Z20.828 Contact with and (suspected) exposure to other viral communicable diseases; I12.9 Hypertensive chronic kidney disease with stage 1 through stage 4 chronic kidney disease, or unspecified chronic kidney disease; E11.22 Type 2 diabetes mellitus with diabetic chronic kidney disease; N18.9 Chronic kidney disease, unspecified; Z99.2 Dependence on renal dialysis; Z88.5 Allergy status to narcotic agent; Z88.6 Allergy status to analgesic agent
CPT/HCPCS: 36415; 36556; 51702; 70450; 71045; 72125; 80053; 80329; 82803; 83605; 84484; 85025; 87040; 87077; 87186; 87205; 93005; 96365; 96367; 99291; J2543; J3370; J7030; J7050; U0003; G0480

== ENCOUNTER → 2019-11-18 | Outpatient (CLI) | payer MEDICARE, OTHER ==
[2019-11-18] MEDS: REGADENOSON 0.4 MG/5 ML DISP.SYRIN. IV ONE (11:05)
--- NOTE | 2019-11-18 13:12 | RAD ---
MR#: [id number] Date of Study: 11/18/2019 Ordering Physician: TE CLEMENT, Referring Physician: GAB SANTOS Tech: RT Celine Barron) (N) APPROVED REPORT Test Type: Pharmacological Stress Nurse/Tech: RT Beatrice (Candi) (N) Test Indications: non ST elevated myocardial infarction Cardiac History: NSTEMI Medications: see EHR Medical History: see EHR Resting ECG: sinus rhythm Resting Heart Rate: 92 bpm Resting Blood Pressure: 148/66mmHg Pretest Chest Pain: None Nurse/Tech Notes Consent: The procedure was explained to the patient in lay terms. Informed consent was witnessed. Bam eout was entered into [employer]. History and Stress Test performed by RT Celine Barron) (N) Pharm. Details Pharmacologic stress testing was performed using 0.4mg per 5ml of regadenoson given intravenously ove r 7-10 seconds. POST EXERCISE Reason for Termination: Infusion complete Max HR: 112 bpm Max Blood Pressure: 139/57mmHg INTERPRETATION Stress EKG Conclusion: Baseline EKG showed sinus rhythm. No ischemic changes at peak stress. No arr hythmias. Imaging Protocol IMAGE PROTOCOL: Rest Tc-99m/stress Tc-99m 1 day Rest: Stress: Viability: Radiopharm.Tc99m YqlecevlbGg90a Sestamibi Dose10.6mCi 31.6mCi Duration 15min. 10min. Img Date 11/18/2019 11/18/2019 Inj-Img [id number]. 60min. Rest Admin Site:IV - Right AntecubitalAdministrator: RT Beatrice (Candi)(N) Stress Admin Site: IV - Right AntecubitalAdministrator: RT Celine Barron)(N) STRESS DATA End Diast. Vol.146.0mlAv. Heart Imdh488.0bpm End Syst. Vol.43.0mlCO Index BSA0.0L/min Myocardial Vhzy586.0gEject. Ijgnzekw45.0% Stress Rates Pk. Fill Rate4.72EDV/secLVtime Pk. Fill 164.66msec Pk. Empty Rate5.50ESV/secLVtime Pk. Uwbqp904.69msec 1/3 Pk. Fill0.51EDV/sec Stress Scores Regional WT3.00Summed WT13.00 Regional WM0.00Summed WM1.00 Study quality was good. Left Ventricular size was Normal at Rest and Stress. Lung uptake was . Left Ventricular ejection fraction is 72%. The rest and stress images show normal perfusion, normal contraction and thickening. LV Perf. Quant 17 Seg. SSS4.00 17 Seg. SRS5.00 17 Seg. SDS0.00 Stress Defect Extent (% LAD)0.00Rest Defect Extent (% LAD)0.00Rev. Defect Extent (% LAD)0.00 Stress Defect Extent (% LCX) 38.80Rest Defect Extent (% LCX)46.30Rev. Defect Extent (% LCX)0.00 Stress Defect Extent (% RCA)0.00Rest Defect Extent (% RCA)0.00Rev. Defect Extent (% RCA)0.00 Stress Defect Extent (% MAK)6.70Rest Defect Extent (% MAK)8.00Rev. Defect Extent (% MAK)0.00 Conclusion 1. Regadenoson cardioisotope stress test did not show any evidence of ischemia or infarct. 2. Normal left ventricular systolic function with ejection fraction calculated at 72%. 3. Low risk for cardiac events. Signed by : Matthew Fowler, Electronically Approved : 11/18/2019 13:11:51
== END ==
LOC: NM 07:36
PROVIDERS: ATTEND Internal Medicine Cardiovascular Disease
DX: I21.4 Non-ST elevation (NSTEMI) myocardial infarction (principal)
CPT/HCPCS: 78452; 93017; A9500; J2785